=== PATIENT | female | born 1970 | race Caucasian/White ===

== ENCOUNTER → 2017-08-08 | Outpatient (REF) ==
[~2017-08-08] MED LIST: ABILIFY5 MG PO; CYMBALTA 60MG60 MG PO; DULERA1 AR1 IH; HYDROXY CUT PO; LYRICA 150MG C150 MG PO; MOBIC15 MG PO; MYRBETR50MG PO; PERCOCET 325 MG1 TAB PO; PROAIR HFA0.09 MG/AC IH; SENNA-LAX8.6 MG PO; STOOL SOFTENER100 M2 PO
== END ==
LOC: ZLAB.WCH 08:28
DX: Z01.89 Encounter for other specified special examinations (principal)

== ENCOUNTER → 2019-05-20 | Outpatient (CLI) | payer MEDICARE, MEDICAID | LOC: COL.VAS 10:09 | DX: Z01.818 Encounter for other preprocedural examination (principal); M79.89 Other specified soft tissue disorders ==

== ENCOUNTER → 2019-08-18 | Outpatient (CLI) | payer MEDICARE, MEDICAID | LOC: MC.RAD 07-20 17:00 | DX: R92.2 Inconclusive mammogram (principal) | CPT/HCPCS: G0279 ==